=== PATIENT | female | born 1950 | race African-American/Black ===

== ENCOUNTER 2019-06-26 08:42 | Outpatient (CLI) | payer MEDICARE, OTHER ==
[~2019-06-26] VITALS: Ht 170.2 cm; Wt 67.7 kg
[2019-06-26 09:30] LABS: ANION GAP 10.6 mmol/L (8-16); CALCIUM 9.5 mg/dL (8.5-10.1); CARBON DIOXIDE 29.5 mmol/L (21.0-32.0); CREATININE - SERUM 1.4 mg/dL (0.6-1.3); POTASSIUM - SERUM 4.1 mmol/L (3.5-5.1)
[2019-06-26 09:32] LABS: APTT 27.8 SECONDS (22.8-39.4); INR 1.02 (0.85-1.17); PROTIME 12.9 SECONDS (11.6-15.0)
[2019-06-26 09:51] LABS: BASOPHILS 0.7 % (0-2); EOSINOPHILS 8.5 % (0-7); HEMATOCRIT 31.5 % (36.0-48.0); LYMPHOCYTES 25.1 % (15-50); MCH 26.5 pg (26.0-34.0); MCHC 31.7 g/dL (31.0-37.0); MCV 83.3 fL (80.0-100.0); MONOCYTES 8.3 % (2-11); NEUTROPHILS 57.4 % (40-80); PLATELET COUNT 175 10x3/uL (130-400); RBC 3.78 10x6/uL (4.00-5.40); RDW 16.9 % (11.5-14.5); WBC 4.3 10x3/uL (4.8-10.8)
[2019-06-26] MEDS ORDERED: FUROSEMIDE20 MG PO (10:09)
[2019-06-26] MEDS ORDERED: NORVASC5 MG PO (10:09)
[2019-06-26] MEDS ORDERED: KLOR-CON 1010 MEQ PO (10:10)
[2019-06-26] MEDS ORDERED: FERROUS SULFAT325 MG PO (10:11)
[2019-06-26 10:12] VITALS: BP 116/64; Ht 170.2 cm; Wt 67.7 kg
== END 2019-06-26 14:05 | disposition home or self-care (01) ==
LOC: D.SP 08:42 → D.CT 11:00 → D.SP 14:05
PROVIDERS: Radiology Vascular & Interventional Radiology; ATTEND Internal Medicine Hematology & Oncology
DX: D50.0 Iron deficiency anemia secondary to blood loss (chronic) (principal)

== ENCOUNTER 2020-03-11 06:40 | Day surgery (SDC) | payer MEDICARE, OTHER ==
[~2020-03-11] VITALS: Ht 170.2 cm; Wt 70.3 kg
--- NOTE | ~2020-03-11 | OP ---
PATIENT NAME: AROLDO ZAFAR MEDICAL RECORD: [id number] :48 LOCATION:D.OPS ADMISSION DATE: SURGEON: MADHURI GALLARDO DPM DATE OF OPERATION: 03/11/2020 PREOPERATIVE DIAGNOSES: 1. Hallux abductovalgus, right foot. 2. Instability, right first met cuneiform joint. POSTOPERATIVE DIAGNOSES: 1. Hallux abductovalgus, right foot. 2. Instability, right first met cuneiform joint. PROCEDURES: 1. Right Heredia bunionectomy. 2. Right first met cuneiform joint fusion. ANESTHESIA: Preoperative popliteal block per the anesthesia department as well as intraoperative general anesthesia. HEMOSTASIS: Right thigh tourniquet at 350 mmHg. PREOPERATIVE DETAILS: The patient was taken to the OR and placed on the operating table in a supine position. This was followed by induction of general anesthesia. The right extremity was then prepped and draped in usual aseptic technique followed by exsanguination and inflation of tourniquet. PROCEDURE #1: Heredia bunionectomy, right foot. A 15 blade was used to create an incision from the dorsal aspect of the medial cuneiform distally to the base of the proximal phalanx of the hallux. The incision was deepened down through subcutaneous tissue being sure to avoid all vital structures. Dissection was carried down to the first MPJ where an inverted L capsulotomy was performed. The medial capsular flap was reflected and the head of the first metatarsal was delivered. A sagittal saw was used to resect the medial eminence. Attention was directed to the first interspace where a lateral release was performed. Good clinical reduction of lateral contracture was verified. PROCEDURE #2: First met cuneiform joint fusion. Utilizing the incision as described in #1, the incision was carried down through the subcutaneous tissue being sure to avoid the dorsal nerve and veins, which were retracted. Periosteal incision was made overlying the first met cuneiform joint. The periosteum was freed and the joint was delivered. A sagittal saw was used to resect the joint and the joint was temporarily fixated with a K-wire. Excellent alignment was noted of the joint as well as the first ray. A 5-hole plate with one screw crossing through the plate and across the fusion site was placed under rigid internal fixation with excellent alignment, it was verified by C-arm. The wound was flushed. The deep tissue including the periosteum and the first MPJ capsule repaired with 2-0 Vicryl, the subcutaneous tissue with 4-0 Rapide and the skin was closed with 4-0 Rapide in a subcuticular technique followed by Dermabond. Adaptic, 4 x 4 and Conform were used to dress the wound followed by application of modified Montano compression dressing. Tourniquet was deflated. POSTOPERATIVE DETAILS: The patient tolerated the procedure well and left the OR with vital signs stable and vascular status at preoperative levels. The patient was transported to recovery per anesthesia in stable condition. 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
[~2020-03-11 06:40] MED LIST: FERROUS SULFAT325 MG PO; FUROSEMIDE20 MG PO; GABAPENTIN100 MG PO; KLOR-CON 1010 MEQ PO; NORVASC5 MG PO; PRAVACHOL40 MG PO
[2020-03-11 08:13] LABS: ANION GAP 11.8 mmol/L (8-16); CALCIUM 9.3 mg/dL (8.5-10.1); CARBON DIOXIDE 28.3 mmol/L (21.0-32.0); CREATININE - SERUM 1.5 mg/dL (0.6-1.3); POTASSIUM - SERUM 4.1 mmol/L (3.5-5.1)
[2020-03-11 08:25] VITALS: BP 129/70; Ht 170.2 cm; Wt 70.3 kg
[2020-03-11 08:36] LABS: BASOPHILS 0.7 % (0-2); EOSINOPHILS 9.8 % (0-7); HEMATOCRIT 35.1 % (36.0-48.0); HEMOGLOBIN 11.4 g/dL (12-16); IMMATURE GRANULOCYTES 0.2 % (0-5); LYMPHOCYTES 28.6 % (15-50); MCH 26.8 pg (26.0-34.0); MCHC 32.5 g/dL (31.0-37.0); MCV 82.6 fL (80.0-100.0); MONOCYTES 11.2 % (2-11); NEUTROPHILS 49.5 % (40-80); PLATELET COUNT 146 10x3/uL (130-400); RBC 4.25 10x6/uL (4.00-5.40); RDW 17.7 % (11.5-14.5); WBC 4.2 10x3/uL (4.8-10.8)
== END 2020-03-11 14:13 | disposition home or self-care (01) ==
LOC: D.OPS 06:40
PROVIDERS: Anesthesiology; ATTEND Podiatrist
DX: M20.11 Hallux valgus (acquired), right foot (principal); M25.374 Other instability, right foot; I10 Essential (primary) hypertension